=== PATIENT | male | born 1990 | race African-American/Black ===

== ENCOUNTER 2021-05-08 07:05 | Emergency (ER) | payer OTHER ==
[~2021-05-08] VITALS: Ht 175.3 cm; Wt 82.0 kg
[2021-05-08] MEDS ORDERED: DIPHENHYDRAMINE 50MG/ML VIAL IM STA (07:39)
[2021-05-08] MEDS ORDERED: LORAZEPAM 2MG/ML CPJ IM STA (07:39)
[2021-05-08] MEDS ORDERED: HALOPERIDOL LACTATE 5MG/ML VIAL IM STA (07:39)
[2021-05-08] MEDS ORDERED: DIPHENHYDRAMINE 50MG/ML VIAL ONE (07:49)
[2021-05-08] MEDS ORDERED: LORAZEPAM 2MG/ML CPJ ONE (07:49)
[2021-05-08 08:30] LABS: BASOPHILS % 0.3 % (0.0-2.0); HEMATOCRIT. 38.3 % (42.0-52.0); HEMOGLOBIN. 12.9 g/dL (14.0-18.0); LYMPHOCYTES % 9.3 % (20.0-50.0); MEAN CORPUSCULAR HEMOGLOBIN 31.4 pg (28.0-32.0); MEAN PLATELET VOLUME 8.2 fl (7.4-10.4); MONOCYTES % 6.1 % (2.0-8.0); NEUTROPHILS % 84.3 % (40.0-76.0); PLATELET 253 x1000/uL (130-400); RED BLOOD CELL COUNT 4.11 mill/uL (4.7-6.1); RED CELL DISTRIBUTION WIDTH 13.1 % (11.6-14.6)
[2021-05-08 08:32] LABS: CHLORIDE 111 mEq/L (98-107)
[2021-05-08 08:37] LABS: ETHANOL BLOOD < 10 mg/dL
[2021-05-08 09:19] LABS: CLARITY URINE CLOUDY (CLEAR); COLOR URINE YELLOW (YELLOW); KETONES URINE 3+ (NEGATIVE); LEUKOCYTE ESTERASE URINE NEGATIVE (NEGATIVE); NITRITE URINE NEGATIVE (NEGATIVE); OCCULT BLOOD URINE 2+ (NEGATIVE); PH URINE 5.5 (4.5-8.0); PROTEIN URINE 2+ (NEGATIVE); SPECIFIC GRAVITY URINE 1.026 (1.005-1.030); UROBILINOGEN URINE 0.2 E.U./dL (0.2-1.0)
[2021-05-08 10:16] LABS: *AMPHETAMINES SCREEN URINE PRESUMTIVE POSITIVE (NEGATIVE); *BARBITURATES SCREEN URINE NEGATIVE (NEGATIVE); *BENZODIAZEPINES SCREEN URINE NEGATIVE (NEGATIVE); *COCAINE SCREEN URINE PRESUMTIVE POSITIVE (NEGATIVE)
[2021-05-08 10:17] LABS: CANNABINOID URINE SCREEN NEGATIVE (NEGATIVE); METHADONE URINE SCREEN NEGATIVE (NEGATIVE); OPIATES URINE SCREEN NEGATIVE (NEGATIVE); PHENCYCLIDINE URINE SCREEN NEGATIVE (NEGATIVE)
[2021-05-08 11:52] VITALS: BP 129/88
== END 2021-05-08 13:03 | disposition left against medical advice (07) ==
LOC: EDBD 07:25 → ER 07:25
DX: R41.0 Disorientation, unspecified (principal); Z79.899 Other long term (current) drug therapy
CPT/HCPCS: 36415; 80053; 80305; 80307; 80320; 80329; 81003; 85025; 96372; 99285; J1200; J1630; J2060; Z7610; G0480